=== PATIENT | female | born 1960 | race Caucasian/White ===

== ENCOUNTER 2017-12-12 09:12 | Outpatient (CLI) | payer BC ==
--- NOTE | 2017-12-12 11:32 | Cat Scan Report ---
FINAL REPORT EXAM: CT ABDOMEN WO CON HISTORY: ABDOMEN PAIN TECHNIQUE: CT of the abdomen without IV contrast. Coronal and sagittal reconstructed imaging provided. PRIORS: None currently available. FINDINGS: ABDOMEN: Prominent common bile duct. Left pneumobilia. Findings could be related to prior cholecystectomy. Liver, stomach, spleen, pancreas, adrenals, and kidneys are unremarkable. No hydronephrosis. No nephroureteral stones. IVC is unremarkable. [id number] aortic atherosclerotic disease. No aneurysm. There is no periaortic or retroperitoneal adenopathy or mass. Series 2:78 demonstrates a focal distension of a small bowel loop measuring 4.2 cm in diameter. Abrupt transition to small bowel wall thickening with thin internal and trace contrast passing through this area. Thickened bowel loops involve the mid right abdomen possibly of distal jejunal and proximal ileal bowel loops. Left ventral hernia on series 2:59 does not demonstrate any strangulation or. Muscular atrophy of the right abdominal muscles identified. Mild diastasis recti identified. Superimposed fat containing umbilical hernia. No strangulation. Distal ileum, cecum, and ascending colon are not well evaluated because of partial imaging. Zqtc-na-wivaiiwi stool in the remainder of colon without obvious wall thickening or large bowel obstruction. Bones: No suspicious osseous lesions on this limited examination of the skeleton. Metastatic disease better evaluated with bone scan. Degenerative changes are in the spine. IMPRESSION: Thickened bowel loops involve the mid right abdomen possibly of distal jejunal and proximal ileal bowel loops causing moderate grade narrowing with focal dilatation proximal to the transition point. No bowel obstruction noted at this time. Findings may represent a mass or inflammatory, infectious, or fibrotic process. Distal ileum, cecum, ascending colon not well evaluated because of partial imaging. Once contrast is present within the colon repeat CT abdomen and pelvis may be helpful for better evaluation. Left pneumobilia and dilated common bile duct could be related to prior cholecystectomy. A ductal lesions not entirely excluded.
== END 2017-12-12 09:13 | disposition home or self-care (01) ==
LOC: CT 09:12
PROVIDERS: ATTEND Internal Medicine
DX: K43.9 Ventral hernia without obstruction or gangrene (principal); R10.9 Unspecified abdominal pain; I70.0 Atherosclerosis of aorta; K83.8 Other specified diseases of biliary tract; M47.899 Other spondylosis, site unspecified; Z90.49 Acquired absence of other specified parts of digestive tract
CPT/HCPCS: 74150

== ENCOUNTER 2020-03-02 09:31 | Day surgery (SDC) | payer BC ==
[2020-03-02] MEDS ORDERED: ASPIRIN EC 325 MG TAB PO ONE (10:17)
[2020-03-02] MEDS: SODIUM CHLORIDE 0.9% 500 ML 500 ML IV SCH ×2 (10:36→12:11)
[2020-03-02 10:39] LABS: Basophils % (Auto) 0.3 % (0.0-1.8); Eosinophils # (Auto) 0.2 K/mm3 (0.0-0.4); Hematocrit 41.1 % (30.3-42.9); Hemoglobin 13.7 gm/dl (10.1-14.3); Lymphocytes # (Auto) 2.1 K/mm3 (1.2-5.4); Lymphocytes % (Auto) 26.9 % (13.4-35.0); Mean Corpuscular HGB Conc 34 % (30-34); Mean Corpuscular Volume 93 fl (79-97); Monocytes # (Auto) 0.5 K/mm3 (0.0-0.8); Monocytes % (Auto) 6.4 % (0.0-7.3); Platelet Count 408 K/mm3 (140-440); Red Blood Count 4.43 M/mm3 (3.65-5.03); Red Cell Distribution Width 13.3 % (13.2-15.2)
[2020-03-02 10:50] LABS: INR 0.89 (0.87-1.13); Partial Thromboplastin Time 26.6 Sec. (24.2-36.6)
[2020-03-02 10:51] LABS: Blood Urea Nitrogen 11 mg/dL (7-17); Calcium 9.6 mg/dL (8.4-10.2); Hemolysis Index 5
[2020-03-02 11:01] LABS: BUN/Creatinine Ratio 18
[2020-03-02] MEDS ORDERED: HEPARIN/NS 5000 UNIT/500ML 1,000 ML IR ONE (11:48)
[2020-03-02] MEDS: fentaNYL 100 MCG/2 ML INJ ONE ×2 (12:09→12:38)
[2020-03-02] MEDS: LIDOCAINE (2%) 20 MG/1 ML VIAL 20 ML MDV INFILTRATI ONE ×2 (12:09→12:39)
[2020-03-02] MEDS: MIDAZOLAM 2 MG/2 ML INJ ONE ×2 (12:09→12:38)
[2020-03-02] MEDS: HEPARIN 10,000 UNITS/10 ML VIAL ONE ×2 (12:10→12:40)
[2020-03-02] MEDS: VERAPAMIL 5 MG/2 ML INJ ONE ×2 (12:11→12:40)
[2020-03-02] MEDS: NITROGLYCERIN SYRINGE 3 ML ONE ×2 (12:12→12:40)
--- NOTE | 2020-03-02 13:25 | Cardiac Catherization Report ---
CARDIAC CATHETERIZATION REPORT REASON FOR PROCEDURE: The patient is a 59-year-old woman with chest pain. A stress test was done, during which she experienced chest pain, ST depression and inferior ischemia. Cardiac catheterization was recommended. PROCEDURES: 1. Left heart catheterization. 2. Selective left and right coronary angiography. 3. Left ventricular angiography. 4. Sedation time start 12:39, end 12:54. DESCRIPTION OF PROCEDURE: The patient was prepped and draped in a sterile fashion after informed consent. The right radial cath site was prepped and draped after a negative Jasmeet's test. The right radial artery was entered using the Seldinger technique followed by placement of a 6-Trinidadian hydrophilic sheath. Routine radial cocktail was administered via the sheath. Selective left and right coronary angiography was performed using a #3.5 left Ezequiel, and a #4 right Ezequiel. A pigtail catheter was used for left ventricular angiography. The catheters were then removed, sheath removed and hemostasis achieved using a TR band. The patient was returned to the postprocedure unit in stable condition. There were no complications. FINDINGS: HEMODYNAMICS: Left ventricular end-diastolic pressure was 21, following coronary angiography. Ascending aortic pressure 161/75. There was no significant pressure gradient on pullback across the aortic valve. CORONARY ANGIOGRAPHY: The left main coronary artery contained mild ostial narrowing, but otherwise free of significant disease. The left anterior descending artery contained mild luminal irregularities in its proximal segment. There was mild narrowing of the mid segment with up to 20% luminal stenosis, but otherwise the LAD or diagonal branches were free of significant disease. The circumflex artery and its obtuse marginal branches contained mild luminal irregularities. The right coronary artery was dominant. This vessel was completely occluded in its proximal segment, close to the ostium. This was chronic total occlusion. There was collateralization of the right coronary artery including the PDA and posterolateral branches as well as the mid AV groove, right coronary from the left coronary system. There was overall well preserved left ventricular systolic function with ejection fraction greater than 65%. There was moderate focal hypokinesis of the basal inferior wall. CONCLUSION: 1. 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 2. Otherwise, no other significant coronary lesions. 3. Well preserved left ventricular systolic function with ejection fraction greater than 65%. RECOMMENDATION: 1. Optimal medical therapy including antiplatelets, nitrates, statin and beta mariaa. 2. The patient will be considered for TR[employer] INSPECTOR intervention if there is failure of medical therapy or recurrent angina pectoris. [facility]# [id number] BRENDA/GEE
[2020-03-02] MEDS ORDERED: HYDROcodone/ACETAMINOPHEN 5-325 MG TAB PO PRN (13:37)
[2020-03-02] MEDS ORDERED: traMADol 50 MG TAB PO PRN (13:37)
--- NOTE | 2020-03-02 13:40 | Discharge Summary ---
Short Stay Discharge Plan Activity: advance as tolerated Weight Bearing Status: Partial Weight Bearing Diet: low fat, low cholesterol, low salt, diabetic Wound: keep clean and dry Special Instructions: no heavy lifting (3 days), hold Metformin (48hrs) Follow up with: AVEL MONROY MD [Primary Care Provider] - 7 Days STEVE LEMUS MD [Staff Physician] - 7 Days
[2020-03-02] MEDS ORDERED: SODIUM CHLORIDE 0.9% 1000 ML 1,000 ML IV SCH (13:45)
[2020-03-02 16:30] VITALS: BP 124/65
== END 2020-03-02 16:46 | disposition home or self-care (01) ==
LOC: CATHLABREC 09:31
PROVIDERS: ATTEND Internal Medicine Cardiovascular Disease
DX: R07.89 Other chest pain (principal); R94.39 Abnormal result of other cardiovascular function study; I25.10 Atherosclerotic heart disease of native coronary artery without angina pectoris; E78.00 Pure hypercholesterolemia, unspecified; I10 Essential (primary) hypertension; E11.9 Type 2 diabetes mellitus without complications; Z79.899 Other long term (current) drug therapy; Z79.82 Long term (current) use of aspirin; Z98.890 Other specified postprocedural states; Z98.49 Cataract extraction status, unspecified eye; Z79.84 Long term (current) use of oral hypoglycemic drugs
CPT/HCPCS: 36415; 80048; 85025; 85610; 85730; 93005; 93458; 99156; C1894; J1644; J2250; J3010; J7040; Q9967